=== PATIENT | female | born 1950 | race Caucasian/White ===

== ENCOUNTER → 2016-11-21 | Outpatient (CLI) | payer OTHER ==
[~2016-11-21] VITALS: Ht 152.4 cm; Wt 53.6 kg
[~2016-11-21] MED LIST: FLUC100T39 PO; HYDR-906 PO
[2016-11-21 15:38] VITALS: BP 170/76; PULSE 96; RESP 18; Ht 152.4 cm; Wt 53.6 kg
--- NOTE | 2016-11-22 16:11 | PN ---
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, patient had been treated at multiple level, patient still on medication, no fever chill , patient still has slight headache, no seizure, no confusion, Hypertension/patient blood pressure significantly elevated, patient has slight headache, no dizziness, no syncope, no chest pain, Anemia/no hematemesis or melena, no ecchymosis bruising or bleeding, Renal insufficiency/no nausea or vomiting, no pruritus, Lymphoma/patient has a history of lymphoma, no mass in the neck, patient was treated with 11 chemotherapy treatment, patient still missing 1, patient to follow with the oncologist, Review of Systems Const: No Fever, no chills, no Wt. loss, no Fatigue, normal appetite, no diaphoresis. Eyes: No pain, no discharge, no redness, no visual change, no foreign body. ENT: No pain, no bleeding, no congestion, no sore throat, no dysphagia, no discharge or rhinitis. Lymph: No adenopathy, no tender nodes, no lymphedema. Resp: No SOB, no cough, no sputum, no wheezing, no chest pain. CV: No chest pain, no palpitaions, no LEDESMA, no PND, no edema. GI: Normal appetite, no pain, slight nausea, and occasional vomiting, no diarrhea, no blood, no constipation. : No frequency, no urgency, no dysuria, no hematuria, no flank pain, no discharge, no bleeding. Musc: No back pain, no neck pain, no knee pain, no restricted ROM. Skin: No rash, no skin lesions, no erythema, no laceration, no bruising, no pruritus. Neuro: Mild HOGUE, no dizziness, no syncope, no seizure, no focal-weakness. Endo: No polyuria, no polydypsia, no dry-skin, no temp-intolerance. Psych: No hallucinations, no depression, no anxiety, no suicidal ideation. Ext: No edema, no pain, no ulcer, generalized weakness, Physical Exam Vital Signs Date Time Temp Pulse Resp B/P Pulse Ox O2 Delivery O2 Flow Rate FiO2 11/21/16 15:38 98.7 96 18 170/76 98 Room Air General Appearance: A 66 year-old female who appears well-developed, well- nourished, in no acute distress. HEENT: Head normocephalic, atraumatic. Pupils equal, round, reactive to light and accommodate. Sclerae are no jaundice. Nasal turbinates pink without erythema or nasal discharge. Mucous membranes pink and moist without lesions. Oropharynx clear without any exudate or discharge. NECK: Supple. Trachea midline, No thyromegaly, No cervical lymphadenopathy, No mass, No carotid bruits, No JVD, Carotid pulses 2+ bilaterally. PULMONARY: Clear to auscultaion bilaterally, No retractions, Chest expansion symmetric bilaterally, no rales, no ronchi, no dulness on percussion. CARDIAC: Normal SI and S2, Regular rate and rythm, no murmur, gallop, or rub. GASTROINTESTINAL: Abdomen is soft, non-tender, Non Rigid, No distention, Positive bowel sounds x4 quadrants, Liver normal. SKIN: Warm, dry, no rash, no bruise, no echmosis. EXTREMITIES: Bilateral lower extremities normal, no edema, no phlabitus, pulse palpable, no contracture. MUSCULOSKELETAL: Spine Normal, Non-tender, Normal range of motion, No swelling, no deformity, no clubbing, or cyanosis, the patient has no edema to bilateral lower extremities, dorsalis pedis pulses palpable bilaterally. NEUROLOGIC: The patient is awake, alert, oriented, responding to yes/no questions appropriately, moving all extremities, cranial nerve intact, normal strenght, normal power, normal coordination, normal gait. Allergies Coded Allergies: No Known Drug Allergies (Verified Allergy, Unknown, 11/21/16) PMH Cryptococcal meningitis/hypertension/anemia/renal insufficiency/lymphoma/ Social Hx No smoking or drinking, Family Hx Noncontributory Assessment/Plan Impression Cryptococcal meningitis/ Poorly controlled hypertension Anemia Renal insufficiency Lymphoma Plan Patient education done about about multiple medical problem, patient very high risk for repeated admission, for altered mental status For sepsis infection, patient and family education done, patient encouraged to follow with the primary care physician, Patient still on antibiotic, patient remained afebrile, patient wanted second opinion and infectious disease also wanted second opinion, so we will apply for authorization of infectious disease at [facility], Patient to go to the hospital or the family to take with radiation to get a medical record, before patient visit infectious disease, Patient to continue all medication, continue slow activity, Patient blood pressure significantly elevated, we will give metoprolol 25 mg daily, and family to check the blood pressure twice a day, if the blood pressure remains elevated we will increase the dose to 50 mg daily, Also monitor heart rate, Metoprolol 25 mg daily #30 Medications Home Meds Reported Medications Hydrocodone/Acetaminophen ([place] 5-325 Tablet) 1 Each Tablet, 1 EACH PO Q6 for PAIN, TAB 11/21/16 Fluconazole* (Fluconazole*) 100 Mg Tablet, 400 MG PO BID, TAB 11/21/16 DUSTY COOPER MD Nov 22, 2016 16:11
== END | disposition home or self-care (01) ==
LOC: DCC 15:29
PROVIDERS: ATTEND Internal Medicine
DX: B45.1 Cerebral cryptococcosis (principal); I10 Essential (primary) hypertension; D64.9 Anemia, unspecified; N28.9 Disorder of kidney and ureter, unspecified; C85.90 Non-Hodgkin lymphoma, unspecified, unspecified site

== ENCOUNTER → 2016-12-06 | Outpatient (CLI) | payer OTHER ==
[~2016-12-06] VITALS: Ht 152.4 cm; Wt 54.5 kg
[2016-12-06 15:45] VITALS: Ht 152.4 cm; Wt 54.5 kg
[2016-12-06 15:46] VITALS: BP 132/63; PULSE 87; RESP 18
--- NOTE | 2016-12-06 16:05 | PN ---
Date/Time of Note Date/Time of Note DATE: 12/06/16 TIME: 16:01 Outpatient Progress Note Chief Complaint Meningitis/hypertension/anemia/renal insufficiency/lymphoma HPI Cryptococcal meningitis/patient has cryptococcal meningitis, patient on fluconazole, patient also was seen by infectious disease, patient will be continued on antibiotic, Hypertension/patient blood pressure under control, no headache or dizziness, patient feels slight weakness and tiredness, Anemia/hematemesis or melena, slight fatigue, Renal insufficiency/slight nausea and upset stomach, no vomiting at present, Lymphoma/patient has history of lymphoma, no fever chill, no weight loss recently, patient to follow with oncologist, Review of Systems Const: No Fever, no chills, no Wt. loss, no Fatigue, normal appetite, no diaphoresis. Eyes: No pain, no discharge, no redness, no visual change, no foreign body, no jaundice,. ENT: No pain, no bleeding, no congestion, no sore throat, no dysphagia, no discharge or rhinitis. Lymph: No adenopathy, no tender nodes, no mass, Resp: No SOB, no cough, no sputum, no wheezing, no chest pain, no hemoptysis,. CV: No chest pain, no palpitaions, no LEDESMA, no PND, no edema. GI: Normal appetite, no pain, no nausea, no vomiting, no diarrhea, no blood, no constipation. No abdominal distention, no cramps, : No frequency, no urgency, no dysuria, no hematuria, no flank pain, no discharge, no bleeding. Musc: No back pain, no neck pain, no knee pain, no restricted ROM. Skin: No rash, no skin lesions, no erythema, no laceration, no bruising, no pruritus. Patient has had a loss, on the head, Neuro: No HOGUE, no dizziness, no syncope, no seizure, no focal-weakness. Endo: No polyuria, no polydypsia, no dry-skin, no temp-intolerance. Psych: No hallucinations, no depression, no anxiety, no suicidal ideation. Ext: No edema, no pain, no ulcer, no weakness. Physical Exam Vital Signs Date Time Temp Pulse Resp B/P Pulse Ox O2 Delivery O2 Flow Rate FiO2 12/06/16 15:46 98.6 87 18 132/63 100 Room Air General Appearance: A 66 year-old female who appears well-developed, well- nourished, in no acute distress. HEENT: Head normocephalic, atraumatic. Pupils equal, round, reactive to light and accommodate. Sclerae are no jaundice. Nasal turbinates pink without erythema or nasal discharge. Mucous membranes pink and moist without lesions. Oropharynx clear without any exudate or discharge. NECK: Supple. Trachea midline, No thyromegaly, No cervical lymphadenopathy, No mass, No carotid bruits, No JVD, Carotid pulses 2+ bilaterally. PULMONARY: Clear to auscultaion bilaterally, No retractions, Chest expansion symmetric bilaterally, no rales, no ronchi, no dulness on percussion. CARDIAC: Normal SI and S2, Regular rate and rythm, no murmur, gallop, or rub. GASTROINTESTINAL: Abdomen is soft, non-tender, Non Rigid, No distention, Positive bowel sounds x4 quadrants, Liver normal. SKIN: Warm, dry, no rash, no bruise, no echmosis. Hair loss on the head, secondary to chemotherapy EXTREMITIES: Bilateral lower extremities normal, no edema, no phlabitus, pulse palpable, no contracture. MUSCULOSKELETAL: Spine Normal, Non-tender, Normal range of motion, No swelling, no deformity, no clubbing, or cyanosis, the patient has no edema to bilateral lower extremities, dorsalis pedis pulses palpable bilaterally. NEUROLOGIC: The patient is awake, alert, oriented, responding to yes/no questions appropriately, moving all extremities, cranial nerve intact, normal strenght, normal power, normal coordination, normal gait. Allergies Coded Allergies: No Known Drug Allergies (Verified Allergy, Unknown, 11/21/16) PMH No change Social Hx No change Family Hx No change Assessment/Plan Impression Meningitis/hypertension/anemia/renal insufficiency/lymphoma Plan Patient feeling slightly better, patient was seen by infectious disease, Patient blood pressure under control, no sign and symptom of any headache or dizziness, stable, Patient encouraged to follow with the primary care physician, patient has appointment with hematology oncology, We will refill Norvasc 5 mg p.o. daily, and #30 and Zofran 4 mg every 6 hours as needed for nausea and vomiting #15, Medications Home Meds Reported Medications Hydrocodone/Acetaminophen ([place] 5-325 Tablet) 1 Each Tablet, 1 EACH PO Q6 for PAIN, TAB 11/21/16 Fluconazole* (Fluconazole*) 100 Mg Tablet, 400 MG PO BID, TAB 11/21/16 DUSTY COOPER MD Dec 06, 2016 16:05
== END | disposition home or self-care (01) ==
LOC: DCC 15:38
PROVIDERS: ATTEND Internal Medicine
DX: B45.1 Cerebral cryptococcosis (principal); I10 Essential (primary) hypertension; D64.9 Anemia, unspecified; N28.9 Disorder of kidney and ureter, unspecified; Z85.72 Personal history of non-Hodgkin lymphomas

== ENCOUNTER 2017-02-20 08:56 | Day surgery (SDC) | payer OTHER ==
[2017-02-20] VITALS (14 sets, daily range): BP systolic 121–165; BP diastolic 61–76; PULSE 82–96; RESP 11–24; Ht 154.9 cm; Wt 56.6 kg
[~2017-02-20] VITALS: Ht 154.9 cm; Wt 56.6 kg
[2017-02-20 09:58] LABS: BASOPHIL # 0.1 10^3/ul (0.0-0.1); BASOPHILS % 0.9 % (0.0-2.0); EOSINOPHILS # 0.3 10^3/ul (0.0-0.5); EOSINOPHILS % 3.8 % (0.0-7.0); HEMATOCRIT 34.9 % (37.0-47.0); HEMOGLOBIN 11.8 g/dl (12.0-16.0); LYMPHOCYTES # 1.8 10^3/ul (0.8-2.9); LYMPHOCYTES % 27.1 % (15.0-51.0); MEAN CORPUSCULAR HEMOGLOBIN 31.1 pg (29.0-33.0); MEAN CORPUSCULAR HGB CONC 33.8 g/dl (32.0-37.0); MEAN CORPUSCULAR VOLUME 92.1 fl (82.0-101.0); MEAN PLATELET VOLUME 9.8 fl (7.4-10.4); MONOCYTE # 0.6 10^3/ul (0.3-0.9); MONOCYTES % 9.2 % (0.0-11.0); NEUTROPHIL # 3.8 10^3/ul (1.6-7.5); NEUTROPHILS % 57.3 % (39.0-77.0); PLATELET COUNT 225 10^3/UL (140-415); RED BLOOD COUNT 3.79 10^6/ul (4.20-5.40); RED CELL DISTRIBUTION WIDTH 13.5 % (11.5-14.5); WHITE BLOOD COUNT 6.6 10^3/ul (4.8-10.8)
[2017-02-20] MEDS ORDERED: SOD CHLORIDE 0.9% 1,000 ML IV SCH (10:00)
[2017-02-20] MEDS ORDERED: CEFAZOLIN 1 GM/50 ML (PMX) 50 ML IVPB SCH (10:00)
--- NOTE | 2017-02-20 10:18 | RADRPT ---
PROCEDURE: XR Chest. CLINICAL INDICATION: Preop. TECHNIQUE: Single AP portable chest. COMPARISON: No prior Chest x-ray FINDINGS: The cardiomediastinal silhouette is within normal limits of size. Right MediPort catheter tip overly ing the mid superior vena cava. The lungs are clear without pleural effusion or focal consolidatio n. No pneumothorax. The osseous structures and soft tissues are unremarkable. IMPRESSION: 1. No evidence for active cardiopulmonary disease. RPTAT:AAJJ Physician Anel Date Time Electronically viewed and signed by Physician Anel on 02/20/2017 10:18 ALIYA/
[2017-02-20 10:27] LABS: ALBUMIN/GLOBULIN RATIO 1.14; BILIRUBIN,INDIRECT 0.1 mg/dl (0-1.1); BILIRUBIN,TOTAL 0.1 mg/dl (0.2-1.3); TOTAL PROTEIN 7.5 g/dl (6.1-8.1)
[2017-02-20 10:40] LABS: CALCIUM 10.2 mg/dl (8.4-10.2); CREATININE 0.8 mg/dl (0.44-1.00); POTASSIUM 4.3 mmol/L (3.5-5.1)
[2017-02-20 10:43] LABS: INR 0.93; PROTIME 12.5 Sec (11.9-14.9)
[2017-02-20 10:44] LABS: PARTIAL THROMBOPLASTIN TIME 28.8 Sec (25.0-35.0)
[2017-02-20] MEDS ORDERED: FENTAnyl 50 MCG/ML VIAL ONE (13:05)
[2017-02-20] MEDS ORDERED: CEFAZOLIN 1 GM INJ ONE (13:46)
[2017-02-20] MEDS ORDERED: SUGAMMADEX SODIUM 200 MG/2 ML VIAL IV ONE (13:46)
[2017-02-20] MEDS ORDERED: LIDOCAINE 2% (SDV) 5 ML INJ ONE (13:46)
[2017-02-20] MEDS ORDERED: PROPOFOL 20 ML ONE (13:46)
[2017-02-20] MEDS ORDERED: SUCCINYLCHOLINE CHLORIDE 100 MG/5 ML SYG IV ONE (13:46)
[2017-02-20] MEDS ORDERED: ROCURONIUM 50 MG INJ ONE (13:46)
[2017-02-20] MEDS ORDERED: FENTAnyl 50 MCG/ML VIAL IV PRN (14:00)
[2017-02-20] MEDS ORDERED: ONDANSETRON 4 MG INJ IV PRN (14:00)
[2017-02-20] MEDS ORDERED: HYDROmorphONE (0.2 MG/ML) 10ML SYG IV PRN ×3 (14:00)
[2017-02-20] MEDS ORDERED: MEPERIDINE 25 MG INJ IV PRN (14:00)
[2017-02-20] MEDS ORDERED: METOCLOPRAMIDE 10 MG INJ IV PRN (14:00)
[2017-02-20] MEDS ORDERED: DIPHENHYDRAMINE 50 MG INJ IV PRN (14:00)
--- NOTE | 2017-02-20 14:03 | SIPON ---
Date/Time of Note Date/Time of Note DATE: 02/20/17 TIME: 14:02 Operative Report Preoperative Diagnosis Need for bilateral axillary lymph node biopsy Postoperative Diagnosis Same Operation/Procedure Performed Bilateral axillary lymph node biopsy Surgeon see signature line night assistant Dr Srinivasan Anesthesia: general Estimated blood loss: 10 - 50 ml's Transfusion Required none Specimen Bilateral axillary lymph node tissue Grafts/Implants none Complications none JANETT DELAROSA MD Feb 20, 2017 14:03
[2017-02-20] MEDS: FENTAnyl 50 MCG/ML VIAL IV PRN ×2 (14:27→14:49)
--- NOTE | 2017-02-20 15:12 | OPR ---
DATE OF OPERATION: 02/20/2017 PREOPERATIVE DIAGNOSIS: History of both Hodgkin's lymphoma and adenocarcinoma of the right breast, need for bilateral axillary lymph node biopsy. POSTOPERATIVE DIAGNOSIS: History of both Hodgkin's lymphoma and adenocarcinoma of the right breast, need for bilateral axillary lymph node biopsy. PROCEDURE: Bilateral axillary lymph node biopsy. ANESTHESIA: General. ANESTHESIOLOGIST: Dr. Fisher SURGEON: Anish Beverly MD MANAGER LOCAL: Dr. Min Valladares and INDICATIONS FOR PROCEDURE: The patient is a 66-year-old female who was diagnosed with a Hodgkin's l ymphoma in [place] subsequently on posttreatment biopsy of a right axillary node, she was found to cordero ve adenocarcinoma. The medical oncologist wanted to make a determination if whether residual diseas e was related to her history of Hodgkin's lymphoma versus an occult breast cancer. He requested alejandra ateral axillary lymph node biopsy. The patient consented and was scheduled for surgery. DESCRIPTION OF PROCEDURE: The patient was brought to the operating theater, placed under general an esthesia. The axillary and breast regions were prepped and draped bilaterally in the usual sterile fashion. Attention was directed to the left side first. A 3 to 4 cm incision was made. Subcutaneo us tissue was dissected with cautery down through the clavipectoral fascia. A level 1 lymph node ti ssue was identified. It was meticulously harvested with the LigaSure device and sent for intraopera tive analysis performed by attending pathologist, Dr. Xavier who stated that there was approximate ly 1.5 to 2 cm lymph node within this specimen and did not appear to be completely normal. He state d that there was adequate tissue for further diagnosis. Therefore, the wound was irrigated. Minima l bleeding was controlled with cautery. The skin was reapproximated with 4-0 Vicryl suture in subcu ticular fashion. Attention was then directed to the right side. In a similar fashion, A 3 to 4 cm incision was made in the right mid axillary line. Subcutaneous tissue was dissected with cautery down to the clavipec jacy fascia. Level 1 lymph node tissue was identified and harvested using LigaSure device. Again, intraoperative analysis was performed by Dr. Xavier who stated that there was a small residual ly mph node within the sample; therefore no further lymph nodes were taken. The wound was irrigated. Minimal bleeding was controlled with cautery, and the skin was reapproximated with 4-0 Vicryl suture in subcuticular fashion. Dermabond was then applied to both incisions. The patient tolerated the procedure well. Total blood loss was approximately 30 to 40 mL. There were no complications and th e patient was transported in stable condition to the recovery room. Dictated By: ANISH BEVERLY MD TL/ROSI Conf#: [id number] DID#: [id number] CC: MIN VALLADARES MD;*EndCC*
[2017-02-20] MEDS ORDERED: HYDROCODONE/APAP (5/325) TAB PO ONE (16:30)
--- NOTE | 2017-02-21 07:07 | RADRPT ---
Vent Rate: 83 bpm RR Interval: 0 msec WI Interval: 142 msec QRS Duration: 92 msec QT Interval: 368 msec QTC Interval: 432 msec P-R-T [place]: 63 - -22 - 67 degrees Normal sinus rhythm Normal ECG Electronically Signed By: Gil Ballard [id number]
== END 2017-02-20 16:35 | disposition home or self-care (01) ==
LOC: SDS 08:56
PROVIDERS: ATTEND Surgery Surgical Oncology
DX: C50.911 Malignant neoplasm of unspecified site of right female breast (principal); R59.0 Localized enlarged lymph nodes; I10 Essential (primary) hypertension; E78.5 Hyperlipidemia, unspecified
CPT/HCPCS: 38525; 71010; 80053; 85025; 85610; 85730; 88307; 88313; 93005; J0690; J2405; J3010; Z7512; Z7610